=== PATIENT | male | born 1930 | race Caucasian/White ===

== ENCOUNTER 2021-09-18 08:13 | Emergency (ER) | payer MEDICARE, OTHER ==
[~2021-09-18] VITALS: Ht 190.5 cm; Wt 104.5 kg
[~2021-09-18 08:13] MED LIST: ACET500C4 PO; ASPI-1450 PO; ATOR40TA28 PO; ENAL20 PO; [UNRECOGNIZED DRUG - CODE] PO
[2021-09-18 08:45] VITALS: BP 170/90
[2021-09-18] MEDS ORDERED: LIDOCAINE 5% TRANSDERMAL PATCH TD ONE (08:45)
[2021-09-18] MEDS ORDERED: ACETAMINOPHEN 500 MG TABLET PO ONE (08:45)
[2021-09-18] MEDS ORDERED: LIDO700A15 TP (08:45)
[2021-09-18] MEDS ORDERED: KETOROLAC TROMETHAMINE 30 MG/ML VIAL IM ONE (08:45)
== END 2021-09-18 09:03 | disposition home or self-care (01) ==
LOC: EMS 08:15
DX: M54.16 Radiculopathy, lumbar region (principal); M48.00 Spinal stenosis, site unspecified
CPT/HCPCS: 96372; 99283; J1885